=== PATIENT | male | born 1960 | race Caucasian/White ===

== ENCOUNTER 2017-11-19 20:56 | Emergency (ER) | payer BC, OTHER ==
[2017-11-19 21:18] VITALS: BP 156/104
[2017-11-19] MEDS ORDERED: Indomethacin CAP* 25 MG CAP PO ONE (21:57)
--- NOTE | 2017-11-19 22:11 | UC ---
Lower Extremity/Ankle HPI - HPI Summary HPI Summary: 57 yo WM h/o left foot gout c/o recurrent gouty attack on left foot, Naproxen did not work, states he has been eating more red meat than usual - History of Current Complaint Chief Complaint: UCLowerExtremity Stated Complaint: FOOT PAIN Time Seen by Provider: 11/19/17 21:17 Hx Obtained From: Patient Onset/Duration: Sudden Onset Severity Initially: Moderate Severity Currently: Moderate Pain Intensity: 7 Aggravating Factor(s): Ambulation Alleviating Factor(s): Nothing - Allergies/Home Medications Allergies/Adverse Reactions: Allergies Allergy/AdvReac Type Severity Reaction Status Date / Time NOVACAINE AdvReac Intermediate See Comment Uncoded 11/19/17 21:18 PMH/Surg Hx/FS Hx/Imm Hx - Additional Past Medical History Additional PMH: gout Previously Healthy: Yes - Surgical History Surgical History: Yes Surgery Procedure, Year, and Place: deviated septum surgery 8 years ago - Social History Alcohol Use: Occasionally Substance Use Type: None Smoking Status (MU): Former Smoker Amount Used/How Often: occassionally a pipe a couple times a year Review of Systems Constitutional: Negative Skin: Negative Eyes: Negative ENT: Negative Respiratory: Negative Cardiovascular: Negative Gastrointestinal: Negative Genitourinary: Negative Motor: Negative Neurovascular: Negative Musculoskeletal: Arthralgia - left foot gouty attack Neurological: Negative Psychological: Negative All Other Systems Reviewed And Are Negative: Yes Physical Exam Triage Information Reviewed: Yes Appearance: Pain Distress Vital Signs: Initial Vital Signs Temp 37.9 C 11/19/17 21:12 Pulse 105 11/19/17 21:12 Resp 20 11/19/17 21:12 BP 156/104 11/19/17 21:12 Pulse Ox 96 11/19/17 21:12 Eye Exam: Normal ENT Exam: Normal Dental Exam: Normal Neck exam: Normal Neck: Positive: 1 Respiratory Exam: Normal Cardiovascular Exam: Normal Abdominal Exam: Normal Musculoskeletal: Positive: Strength Limited @, ROM Limited @, Edema @ - left foot, Other: - left 1st MT erythema and swelling to the left lateral malleolus, exquisitely tender to slight touch Neurological Exam: Normal Psychological Exam: Normal Skin Exam: Normal Lower Extremity Course/Dx - Course Course Of Treatment: Indomethacin 50mg PO x1 in UC - Differential Dx/Diagnosis Provider Diagnoses: Acute gouty attack on left foot Discharge - Sign-Out/Discharge Documenting (check all that apply): Discharge/Admit/Transfer - Discharge Plan Condition: Stable Disposition: HOME Prescriptions: Indomethacin CAP* [Indocin CAP*] 50 mg PO TID PRN 10 Days #30 cap PRN Reason: Pain Patient Education Materials: Gout (ED) Referrals: Alfredo Donnelly MD [Primary Care Provider] - - Billing Disposition and Condition Condition: STABLE Disposition: HOME
== END 2017-11-19 22:15 | disposition home or self-care (01) ==
LOC: UCEAST 20:56
DX: M10.072 Idiopathic gout, left ankle and foot (principal); Z88.4 Allergy status to anesthetic agent; Z87.81 Personal history of (healed) traumatic fracture
CPT/HCPCS: 99212; A9270-GY; G0463

== ENCOUNTER 2018-01-02 16:17 | Emergency (ER) | payer BC ==
[2018-01-02 16:33] VITALS: BP 158/93
--- NOTE | 2018-01-02 16:48 | UC ---
Lower Extremity/Ankle HPI - HPI Summary HPI Summary: 57 y/o male presents to the urgent care c/o exacerbation of gout in his left foot,and left elbow. Pt reports he has been eating a lot of red meats. He also states he was seen here at the clinic about 6 weeks ago w/ a similar flare up of his gout. Paloma is 6/10 w/ mild swelling of his first MTPJ. Pt hs not seen his PCP since last years. He took Ibuprofen PO last night to alleviate symptoms. Pt denies fever, SOB, chest pain, calf pain, abdominal pain, N/v/D - History of Current Complaint Chief Complaint: UCLowerExtremity Stated Complaint: FOOT, ELBOW AND FINGER PAIN Time Seen by Provider: 01/02/18 16:47 Hx Obtained From: Patient Onset/Duration: Gradual Onset, Lasting Days - 1 week, Still Present, Worse Since - yesterday Severity Initially: Mild Severity Currently: Moderate Pain Intensity: 6 Pain Scale Used: 0-10 Numeric Aggravating Factor(s): Ambulation Alleviating Factor(s): Rest Able to Bear Weight: Yes - Risk Factors Gout Risk Factors: Negative DVT Risk Factors: Negative Septic Arthritis Risk Factor: Negative - Allergies/Home Medications Allergies/Adverse Reactions: Allergies Allergy/AdvReac Type Severity Reaction Status Date / Time NOVACAINE AdvReac Intermediate See Comment Uncoded 01/02/18 16:33 PMH/Surg Hx/FS Hx/Imm Hx Previously Healthy: Yes Endocrine History: Diabetes Other Endocrine History: Gout - Surgical History Surgical History: Yes Surgery Procedure, Year, and Place: deviated septum surgery 8 years ago - Family History Known Family History: Positive: Hypertension - Social History Occupation: Employed Full-time Lives: With Family Alcohol Use: Occasionally Substance Use Type: None Smoking Status (MU): Former Smoker Amount Used/How Often: occassionally a pipe a couple times a year Review of Systems Constitutional: Negative Skin: Other - left foot, left elbow swelling, Eyes: Negative ENT: Negative Respiratory: Negative Cardiovascular: Negative Gastrointestinal: Negative Genitourinary: Negative Motor: Negative Neurovascular: Negative Musculoskeletal: Other: - left foot and left elbow pain Neurological: Negative Psychological: Negative Is Patient Immunocompromised?: No All Other Systems Reviewed And Are Negative: Yes Physical Exam - Summary Physical Exam Summary: Vital Signs Reviewed: Yes General : well developed, well nourished male w/o any apparent distress Eyes: Positive: Conjunctiva Clear - PERRLA, EOMI ENT: Positive: Normal ENT inspection, Hearing grossly normal, Pharynx normal, TMs normal Neck: Positive: Supple, Nontender, No Lymphadenopathy Respiratory: Positive: Chest non-tender, Lungs clear, Normal breath sounds, No respiratory distress Cardiovascular: Positive: RRR, No Murmur, Pulses Normal Abdomen Description: Positive: Nontender, No Organomegaly, Soft. Negative: CVA Tenderness (R), CVA Tenderness (L) Bowel Sounds: Positive: Present Musculoskeletal: Positive: Strength Intact, ROM Intact, No Edema, LF Foot/Toes: Pt is able to bear weight but ambulate with mild limping. LF foot :No surface trauma, ecchymosis, erythema, lesions, ulcers or break in skin integrity. The LF foot is without obvious asymmetry or deformity when compared to the RT foot. No bony step-off, Fist MTPJ w/ soft tissue swelling and Point tenderness to palpation . no tenderness of hindfoot, plantar/dorsiflexion, inversion/eversion intact. Distal motor and neurovascular status are intact. Left elbow w/ soft tissue swelling and and point tenderness. Decrease ROM of Left elbow due to pain. Neurological Exam: Normal Psychological Exam: Normal Skin Exam: Normal Triage Information Reviewed: Yes Vital Signs: Initial Vital Signs Temp 99.5 F 01/02/18 16:26 Pulse 104 01/02/18 16:26 Resp 20 01/02/18 16:26 BP 158/93 01/02/18 16:26 Pulse Ox 96 01/02/18 16:26 Lower Extremity Course/Dx - Course Course Of Treatment: 57 y/o male presents to the urgent care c/o exacerbation of gout in his left foot,and left elbow. Pt reports he has been eating a lot of red meats. He also states he was seen here at the clinic about 6 weeks ago w / a similar flare up of his gout. Paloma is 6/10 w/ mild swelling of his first MTPJ. Pt has not seen his PCP since last years. He took Ibuprofen PO last night to alleviate symptoms. Pt denies fever, SOB, chest pain, calf pain, abdominal pain, N/V/D. Hx obtained. Pt w/ a exacerbation of his gout in first left MTPJ and left wlbow on examiantion. Pt educated on gout and low purine diet. Pt Rx Indometacin PO to alleviate symptoms. However strongly advised to f/u w/ his PCP for further management. Pt's BP is elevated today advised to decrease salt in diet, monitor BP and f/u with PCP for further management. Pt understood and agreed w/ plan of care. Pt left the clinic ambulating and hemodynamically stable. - Differential Dx/Diagnosis Differential Diagnosis/HQI/PQRI: Bursitis, DVT, Fracture (Closed), Gout, Infection, Phlebitis, Sprain, Strain Provider Diagnoses: 1- Left foot gout exacerbation. 2-left elbow gout exacerbation. 3-Elevated BP w/o Hx of HTN Discharge - Sign-Out/Discharge Documenting (check all that apply): Discharge/Admit/Transfer - D/C home - Discharge Plan Condition: Stable Disposition: HOME Prescriptions: Indomethacin CAP* [Indocin CAP*] 50 mg PO TID PRN #30 cap PRN Reason: Pain Patient Education Materials: Low Purine Diet (ED), Gout (ED), Low-Sodium Diet ( ED) Referrals: Alfredo Donnelly MD [Primary Care Provider] - 3 Days Additional Instructions: 1-Please take medications as directed to alleviate pain and swelling. 2-Please f/u avoid eating red meats. Avoid strenuous exercise or standing for long periods of time 3- Please f/u with your PCP in 2-3 days for further evaluation and treatment on your gout. 4-Your BP is elevated today. please decrease salt in your diet, monitor BP and if it continues to be elevated please f/u with your PCP for further management - Billing Disposition and Condition Condition: STABLE Disposition: Home
== END 2018-01-02 17:35 | disposition home or self-care (01) ==
LOC: UCEAST 16:17
DX: M10.072 Idiopathic gout, left ankle and foot (principal); M10.022 Idiopathic gout, left elbow; R03.0 Elevated blood-pressure reading, without diagnosis of hypertension; E11.9 Type 2 diabetes mellitus without complications; Z79.84 Long term (current) use of oral hypoglycemic drugs; Z88.4 Allergy status to anesthetic agent; Z82.49 Family history of ischemic heart disease and other diseases of the circulatory system; Z87.891 Personal history of nicotine dependence
CPT/HCPCS: 99212; G0463